=== PATIENT | female | born 1995 | race African-American/Black ===

== ENCOUNTER 2018-04-09 19:06 | Emergency (ER) | payer OTHER ==
[2018-04-09 19:42] VITALS: BP 117/67
--- NOTE | 2018-04-09 20:52 | ER Document Report ---
HPI - HPI Patient complains to provider of: Skin rash Pain Level: Denies Context: Patient is a 22-year-old female that comes to the emergency department for chief complaint of a skin rash, this is over her arms mainly over the deltoids on both sides, this is been present for about 1 month. She states it is occasionally itchy, not painful, there is no fluid or pus buildup or drainage from the areas, she denies fever or chills, she denies any other symptoms. She denies history of the same or history of eczema. She is currently , taking Tylenol, Benadryl as needed for itching, on vitamins. Past Medical History - General Information source: Patient - Social History Smoking Status: Never Smoker Frequency of alcohol use: None Drug Abuse: None Lives with: Family Family History: Reviewed & Not Pertinent - Medical History Medical History: Negative Surgical Hx: Negative - Immunizations Immunizations up to date: Yes Hx Diphtheria, Pertussis, Tetanus Vaccination: Yes Vertical Provider Document - CONSTITUTIONAL General Appearance: WD/WN, No Apparent Distress - INFECTION CONTROL TRAVEL OUTSIDE OF THE [place] IN LAST 30 DAYS: No - HEENT HEENT: Atraumatic, Normal ENT Exam, Normocephalic - NECK Neck: Normal Inspection - RESPIRATORY Respiratory: Breath Sounds Normal, No Respiratory Distress - CARDIOVASCULAR Cardiovascular: Regular Rate, Regular Rhythm - GI/ABDOMEN Gastrointestinal: Abdomen Soft, Abdomen Non-Tender - BACK Back: Normal Inspection - MUSCULOSKELETAL/EXTREMETIES Musculoskeletal/Extremeties: MAEW, FROM, Non-Tender - NEURO Level of Consciousness: Awake, Alert, Appropriate - DERM Integumentary: Rash - Papular raised rash in groups over bilateral deltoid areas , more pronounced on the right, minimal excoriation around the area, no noted erythema, fluctuance, induration. No tenderness. No vesicles or pustules. Skin evaluation is normal otherwise. Course - Re-evaluation Re-evalutation: Skin has appearance of possible molluscum contagiosum, no evidence of secondary infection, no vesicles, pustules, bulla, or petechiae. Rash has been present for over a month. Patient is already taking Benadryl for itching as needed. Discussed with patient, no evidence of life-threatening rash at this time, discussed expectations, dermatology follow-up, and return precautions. Patient states understanding and agreement - Vital Signs Vital signs: Temp Pulse Resp BP Pulse Ox 98.1 F 83 16 117/67 98 04/09/18 19:41 04/09/18 19:41 04/09/18 19:41 04/09/18 19:41 04/09/18 19:41 Discharge - Discharge Clinical Impression: Skin rash Condition: Stable Disposition: HOME, SELF-CARE Additional Instructions: The examination of your rash is most suggestive of a viral cause (molluscum contagiosum possibly). This can take a long time to resolve but it usually resolves on its own. You can follow-up with a dermatology referral for additional evaluation and management of this if desired. Continue Benadryl for itching if needed. Return for any concerning symptoms including developing or spreading redness, fever of 100.4 or greater, or any other concerning symptoms. Referrals: VAN DAUGHERTY, [ACTIVE STAFF] - Follow up as needed
== END 2018-04-09 21:13 | disposition home or self-care (01) ==
LOC: ER 19:06
DX: O26.899 Other specified pregnancy related conditions, unspecified trimester (principal); R21 Rash and other nonspecific skin eruption; Z3A.00 Weeks of gestation of pregnancy not specified
CPT/HCPCS: 99282

== ENCOUNTER 2018-05-30 18:47 | Outpatient (CLI) | payer OTHER ==
[2018-05-30 19:31] LABS: APPEARANCE,URINE SLIGHTLY-CLOUDY; BILIRUBIN,URINE NEGATIVE (NEGATIVE); COLOR,URINE STRAW; GLUCOSE, URINE NEGATIVE (NEGATIVE); KETONES,URINE NEGATIVE (NEGATIVE); LEUKOCYTE ESTERASE,URINE LARGE (NEGATIVE); NITRITE,URINE NEGATIVE (NEGATIVE); PROTEIN,URINE NEGATIVE (NEGATIVE); URINE SPECIFIC GRAVITY 1.003; UROBILINOGEN,URINE NEGATIVE mg/dL (<2.0)
[2018-05-30 19:45] LABS: URINE AMPHETAMINES SCREEN NEGATIVE; URINE BARBITURATES SCREEN NEGATIVE; URINE BENZODIAZEPINES SCREEN NEGATIVE; URINE COCAINE SCREEN NEGATIVE; URINE MARIJUANA (THC) SCREEN NEGATIVE; URINE METHADONE SCREEN NEGATIVE; URINE PHENCYCLIDINE SCREEN NEGATIVE
== END 2018-05-30 20:46 | disposition home or self-care (01) ==
LOC: LC 18:47
PROVIDERS: ATTEND Obstetrics & Gynecology
PROC: 4A1HXCZ Monitoring of Products of Conception, Cardiac Rate, External Approach (ICD-10-PCS; principal; 2018-05-30)
DX: O26.892 Other specified pregnancy related conditions, second trimester (principal); R42 Dizziness and giddiness; Z3A.25 25 weeks gestation of pregnancy
CPT/HCPCS: 80307; 81001

== ENCOUNTER 2018-06-10 23:41 | Outpatient (CLI) | payer OTHER ==
[2018-06-11 00:35] LABS: APPEARANCE,URINE SLIGHTLY-CLOUDY; BILIRUBIN,URINE NEGATIVE (NEGATIVE); COLOR,URINE STRAW; GLUCOSE, URINE NEGATIVE (NEGATIVE); KETONES,URINE NEGATIVE (NEGATIVE); LEUKOCYTE ESTERASE,URINE SMALL (NEGATIVE); NITRITE,URINE NEGATIVE (NEGATIVE); PROTEIN,URINE NEGATIVE (NEGATIVE); URINE SPECIFIC GRAVITY 1.003; UROBILINOGEN,URINE NEGATIVE mg/dL (<2.0)
[2018-06-11 00:54] LABS: URINE AMPHETAMINES SCREEN NEGATIVE; URINE BARBITURATES SCREEN NEGATIVE; URINE BENZODIAZEPINES SCREEN NEGATIVE; URINE COCAINE SCREEN NEGATIVE; URINE MARIJUANA (THC) SCREEN NEGATIVE; URINE METHADONE SCREEN NEGATIVE; URINE PHENCYCLIDINE SCREEN NEGATIVE
== END 2018-06-11 00:51 | disposition home or self-care (01) ==
LOC: LC 23:41
DX: Z34.92 Encounter for supervision of normal pregnancy, unspecified, second trimester (principal); Z3A.26 26 weeks gestation of pregnancy
CPT/HCPCS: 80307; 81001